=== PATIENT | female | born 1970 | race Caucasian/White ===

== ENCOUNTER 2017-11-02 02:35 | Emergency (ER) | payer OTHER ==
[~2017-11-02] VITALS: Ht 167.6 cm; Wt 109.1 kg
[~2017-11-02 02:35] MED LIST: FIORICET 325 MG1 TAB PO; SYNTHROID0.15 MG PO; VITAMIN D3400 IU PO; ZANTAC 150150 MG; ZYRTEC 10MG10 MG PO
[2017-11-02 05:15] LABS: BASO # 0.1 (0.0-0.2); BASO % 0.7 % (0.0-2.0); EOS % 0.1 % (0-4.0); GRAN # 5.6 (1.4-6.5); GRAN % 74.4 % (42.2-75.2); HEMATOCRIT 42.2 % (37.0-47.0); HEMOGLOBIN 13.7 g/dl (12.5-16.0); LYMPH # 1.3 (1.2-3.4); LYMPH % 17.7 % (20.0-51.0); MEAN CELL VOLUME 83 fl (80.0-100.0); MEAN CORPUSCULAR HEMOGLOBIN 27 pg (27.0-31.0); MEAN CORPUSCULAR HGB CONC 33 g/dl (33.0-37.0); MONO # 0.5 (0.1-0.6); MONO % 6.8 % (1.7-9.3); PLATELET COUNT 268 K/mm3 (130-400); RED BLOOD COUNT 5.09 M/mm3 (4.10-5.30); REDCELL DISTRIBUTION WIDTH-CV 14.1 % (11.5-14.5)
[2017-11-02] MEDS ORDERED: VALTREX1 GM PO (05:21)
[2017-11-02] MEDS ORDERED: VITAMIND3 5000 PO (05:23)
[2017-11-02] MEDS ORDERED: [UNRECOGNIZED DRUG - OTHER] PO (05:23)
[2017-11-02] MEDS ORDERED: MAGCITRATE PO (05:24)
[2017-11-02] MEDS ORDERED: EPI-PEN JR0.5 MG/ML IM (05:24)
[2017-11-02 05:27] LABS: ALANINE AMINOTRANSFERASE 29 U/L (9-52); ALBUMIN 4.5 gm/dL (3.5-5.0); ALKALINE PHOSPHATASE 73 U/L (50-136); ANION GAP 9 mmol/L (7-16); AST,SGOT 22 U/L (15-37); BILIRUBIN,TOTAL 0.7 mg/dL (0.0-1.0); BLOOD UREA NITROGEN 14 mg/dL (7-17); CALCIUM 9.4 mg/dL (8.4-10.2); CARBON DIOXIDE 27 mmol/L (22-30); CHLORIDE 102 mmol/L (98-107); CREATININE, serum 0.88 mg/dL (0.52-1.25); GLUCOSE 106 mg/dL (74-106); LIPASE 45 U/L (23-300); MAGNESIUM 2.1 mg/dL (1.6-2.3); PHOSPHOROUS 4.3 mg/dL (2.5-4.5); POTASSIUM 4.1 mmol/L (3.4-5.0); SODIUM 138 mmol/L (137-145); TOTAL PROTEIN 7.3 gm/dL (6.4-8.2)
[2017-11-02 05:41] LABS: TROPONIN-I < 0.012 ng/mL (0.000-0.034)
[2017-11-02 06:47] LABS: COLLECTION METHOD CLEAN CATCH
[2017-11-02 06:52] LABS: PH 7 (5-8); SQUAMOUS EPITHELIAL 0-2 /hpf; URINE APPEARANCE Clear; URINE BACTERIA None Seen /hpf; URINE BILIRUBIN Negative (NEGATIVE); URINE BLOOD 2+ (NEGATIVE); URINE COLOR Yellow; URINE GLUCOSE Negative (NEGATIVE); URINE KETONE Negative (NEGATIVE); URINE LEUKOCYTE ESTERASE Negative (NEGATIVE); URINE NITRATE Negative (NEGATIVE); URINE PROTEIN(semi-quant) Negative (NEGATIVE); URINE RBC 20-50 /hpf; URINE UROBILINOGEN Negative (NEGATIVE)
[2017-11-02 08:10] VITALS: BP 135/86; TEMP 97
[2017-11-02 08:47] VITALS: PULSE 84
== END 2017-11-02 08:48 | disposition home or self-care (01) ==
LOC: COL.ER 02:35
PROVIDERS: Emergency Medicine
DX: B34.9 Viral infection, unspecified (principal); R51 Headache; E03.9 Hypothyroidism, unspecified; Z90.49 Acquired absence of other specified parts of digestive tract
CPT/HCPCS: J2550; J3010; J7030

== ENCOUNTER → 2019-01-23 | Outpatient (CLI) | payer OTHER ==
[~2019-01-23] MED LIST changes: +EPI-PEN JR0.5 MG/ML IM; +MAGCITRATE PO; +VALTREX1 GM PO; +VITAMIND3 5000 PO; +[UNRECOGNIZED DRUG - OTHER] PO
== END ==
LOC: COL.CARD 12:46
DX: G43.109 Migraine with aura, not intractable, without status migrainosus (principal); Q82.5 Congenital non-neoplastic nevus; R41.89 Other symptoms and signs involving cognitive functions and awareness

== ENCOUNTER → 2019-12-16 | Outpatient (CLI) | payer OTHER | LOC: COL.RAD 11:04 | DX: S83.271A Complex tear of lateral meniscus, current injury, right knee, initial encounter (principal); M17.11 Unilateral primary osteoarthritis, right knee ==

== ENCOUNTER 2021-06-02 13:00 | Outpatient (CLI) | payer OTHER ==
[~2021-06-02] VITALS: Ht 167.6 cm; Wt 117.7 kg
[~2021-06-02 13:00] MED LIST changes: +ACULAR 5 ML5 ML OU; +FIORICET 325 MG1 TA1 PO; -FIORICET 325 MG1 TAB PO; +SYNTHROID0.1 MG/TAB PO; +TEMOVATE OINT30 GM TOP
[2021-06-02] MEDS ORDERED: LOTRISONE CREAM15 GM TP (13:26)
[2021-06-02 13:29] VITALS: BP 171/98; PULSE 95; TEMP 97.9
[2021-06-02 14:20] VITALS: BP 148/82; PULSE 82; PULSE 84
[2021-06-02 14:35] VITALS: BP 131/78; PULSE 80
[2021-06-02 14:50] VITALS: BP 140/70; PULSE 94
[2021-06-02 15:05] VITALS: BP 111/60; PULSE 81
[2021-06-02 15:20] VITALS: BP 116/72; PULSE 83
[2021-06-02 15:44] LABS: GLUCOSE,CSF 54 mg/dL (40-70)
--- NOTE | 2021-06-02 16:00 | NUR ---
Pt is ready for departure. I have reviewed dc/rx/fu instructions with pt, she verbalizes understanding. She is escorted to exit via wheelchair.
[2021-06-02 16:03] LABS: TOTAL PROTEIN,CSF 61 mg/dL (15-45)
[2021-06-02 16:13] LABS: CSF APPEARANCE CLOUDY; CSF COLOR COLORLESS
[2021-06-02 16:14] LABS: CSF MONONUCLEAR 100 % (70-100); CSF POLYMORPHONUCLEAR 0 % (0-6); CSF RBC 6 /mm3 (0-0)
== END 2021-06-02 19:13 | disposition home or self-care (01) ==
LOC: COL.RAD 13:00
PROVIDERS: Nurse Practitioner
DX: H53.9 Unspecified visual disturbance (principal); R20.0 Anesthesia of skin; H93.8X2 Other specified disorders of left ear

== ENCOUNTER 2021-12-31 15:57 | Emergency (ER) | payer OTHER ==
[~2021-12-31] VITALS: Ht 167.6 cm; Wt 110.0 kg
[~2021-12-31 15:57] MED LIST changes: +LOTRISONE CREAM15 GM TP
[2021-12-31 16:09] VITALS: TEMP 97.7
[2021-12-31 17:48] LABS: BASO # 0.1 K/mm3 (0.0-0.2); BASO % 0.8 % (0.0-2.0); EOS # 0.1 K/mm3 (0.0-0.7); EOS % 1.2 % (0.0-4.0); GRAN # 4.9 K/mm3 (1.4-6.5); GRAN % 58.6 % (42.2-75.2); HEMATOCRIT 44.7 % (37.0-47.0); HEMOGLOBIN 14.8 g/dl (12.5-16.0); LYMPH # 2.6 K/mm3 (1.2-3.4); LYMPH % 30.7 % (20.0-51.0); MEAN CELL VOLUME 83 fl (80.0-100.0); MEAN CORPUSCULAR HEMOGLOBIN 28 pg (27-31); MEAN CORPUSCULAR HGB CONC 33 g/dl (33.0-37.0); MEAN PLATELET VOLUME 9.9 fl (7.4-10.4); MONO # 0.7 K/mm3 (0.1-0.6); MONO % 8.5 % (1.7-9.3); PLATELET COUNT 305 K/mm3 (130-400); RED BLOOD COUNT 5.39 M/mm3 (4.10-5.30); REDCELL DISTRIBUTION WIDTH-CV 14.4 % (11.5-14.5)
[2021-12-31 18:03] LABS: ALANINE AMINOTRANSFERASE 14 U/L (0-55); ALBUMIN 4.4 gm/dL (3.5-5.0); ALKALINE PHOSPHATASE 74 U/L (40-150); ANION GAP 14 mmol/L (7-16); AST,SGOT 13 U/L (5-34); BILIRUBIN,TOTAL 0.5 mg/dL (0.2-1.2); BLOOD UREA NITROGEN 18 mg/dL (10-20); CALCIUM 9.5 mg/dL (8.4-10.2); CARBON DIOXIDE 23 mmol/L (22-29); CHLORIDE 104 mmol/L (98-107); CREATININE, serum 0.85 mg/dL (0.57-1.11); GLUCOSE 101 mg/dL (70-99); POTASSIUM 4.2 mmol/L (3.5-4.5); SODIUM 141 mmol/L (136-145); TOTAL PROTEIN 7.6 gm/dL (6.2-8.1)
[2021-12-31 18:12] LABS: TROPONIN-I < 0.010 ng/mL (0.00-0.033)
[2021-12-31] MEDS ORDERED: PREDNISONE20 MG PO (19:21)
[2021-12-31 19:27] VITALS: BP 139/73; PULSE 73
== END 2021-12-31 19:30 | disposition home or self-care (01) ==
LOC: COL.ER 15:57
PROVIDERS: Emergency Medicine
DX: M35.2 Behcet's disease (principal); R07.89 Other chest pain; Z88.6 Allergy status to analgesic agent; Z91.040 Latex allergy status
CPT/HCPCS: J7512

== ENCOUNTER 2022-06-13 07:04 | Outpatient (CLI) | payer OTHER ==
--- NOTE | 2022-06-08 08:59 | NUR ---
lmom with instructions, date,time and call back number
[~2022-06-13] VITALS: Ht 167.6 cm; Wt 110.0 kg
[~2022-06-13 07:04] MED LIST changes: +COZAAR 25MG25 MG/TAB PO; +OTEZLA PO; +PREDNISONE20 MG PO; +REVIA 50MG TABL50 MG PO; +SENNA-LAX8.6 MG PO
[2022-06-13 07:22] VITALS: BP 123/80; PULSE 95; TEMP 98.3
[2022-06-13 10:08] VITALS: BP 137/81; PULSE 81
[2022-06-13 10:20] VITALS: BP 137/81; PULSE 82
[2022-06-13 10:35] VITALS: BP 118/48; PULSE 77
[2022-06-13 11:00] VITALS: BP 111/52; PULSE 75
== END 2022-06-13 11:20 | disposition home or self-care (01) ==
LOC: COL.RAD 07:04
DX: G96.00 Cerebrospinal fluid leak, unspecified (principal); R51.9 Headache, unspecified; G89.29 Other chronic pain
CPT/HCPCS: A9548; Q9966

== ENCOUNTER 2024-04-27 15:52 | Emergency (ER) | payer OTHER ==
[~2024-04-27] VITALS: Ht 170.2 cm; Wt 109.1 kg
[2024-04-27 16:00] VITALS: TEMP 97.2
[2024-04-27 16:50] LABS: BASO # 0.1 K/mm3 (0.0-0.2); BASO % 0.6 % (0.0-2.0); EOS # 0.1 K/mm3 (0.0-0.7); EOS % 1.2 % (0.0-4.0); GRAN # 4.6 K/mm3 (1.4-6.5); GRAN % 59.8 % (42.2-75.2); HEMATOCRIT 41.3 % (37.0-47.0); HEMOGLOBIN 13.4 g/dl (12.5-16.0); LYMPH # 2.4 K/mm3 (1.2-3.4); LYMPH % 31.4 % (20.0-51.0); MEAN CELL VOLUME 85 fl (80.0-100.0); MEAN CORPUSCULAR HEMOGLOBIN 28 pg (27-31); MEAN CORPUSCULAR HGB CONC 32 g/dl (33.0-37.0); MEAN PLATELET VOLUME 10.2 fl (7.4-10.4); MONO # 0.5 K/mm3 (0.1-0.6); MONO % 6.7 % (1.7-9.3); PLATELET COUNT 236 K/mm3 (130-400); RED BLOOD COUNT 4.88 M/mm3 (4.10-5.30); REDCELL DISTRIBUTION WIDTH-CV 14.4 % (11.5-14.5)
[2024-04-27 17:08] LABS: ALBUMIN 3.9 g/dL (3.5-5.0); BILIRUBIN,TOTAL 0.3 mg/dL (0.2-1.2); CALCIUM 9.4 mg/dL (8.4-10.2); TOTAL PROTEIN 6.7 g/dl (6.2-8.1)
[2024-04-27 18:00] LABS: CREATININE, serum 0.88 mg/dL (0.57-1.11)
[2024-04-27 18:53] VITALS: BP 142/72; PULSE 72
== END 2024-04-27 18:54 | disposition home or self-care (01) ==
LOC: COL.ER 15:52
PROVIDERS: Physician Assistant
DX: T75.1XXA Unspecified effects of drowning and nonfatal submersion, initial encounter (principal); Y93.11 Activity, swimming; Y92.34 Swimming pool (public) as the place of occurrence of the external cause